=== PATIENT | male | born 1990 | race African-American/Black ===

== ENCOUNTER 2019-09-07 01:47 | Emergency (ER) | payer SELFPAY ==
[~2019-09-07] VITALS: Ht 172.7 cm; Wt 63.5 kg
--- NOTE | 2019-09-07 02:03 | Emergency Room Report ---
History of Present Illness General Chief Complaint: Seizure Source: Patient, EMS Present Illness HPI Patient is a 29-year-old male denies any significant past medical history who was brought in by EMS after possible seizure. Patient is amnestic to what happened. Per family that called EMS patient was sitting up and became stiff and shook for about 5 seconds and was unresponsive for about 1 minute. After that patient was awake but lethargic. He does not remember what happened. He denies any history of seizures. He denies any chest pain or shortness of breath. He denies any family history of early cardiovascular disease or sudden . Patient states that there have been no recent changes to his life. Specifically he denies any new supplement use, excessive caffeine use, recent travel, excessive stress or lack of sleep. Patient denies any abdominal pain, nausea or vomiting. Allergies: Coded Allergies: No Known Allergies (Unverified , 09/07/19) COVID-19 Screening Contact w/high risk pt: No Recent Travel to affected area: No Experienced COVID-19 symptoms?: No COVID-19 Testing performed [employer]: No Patient History Past Medical History: none Past Surgical History: none Social History: Reports: drug use - marijuana; Denies: smoking, alcohol use Nursing Documentation-[facility] Past Medical History: No Stated History Review of Systems All Other Systems: negative except mentioned in HPI Physical Exam Vital Signs Date Time Temp Pulse Resp B/P (MAP) Pulse Ox O2 Delivery O2 Flow Rate FiO2 09/07/19 01:50 98.6 82 18 128/86 (100) 99 Room Air Sp02 EP Interpretation: reviewed, normal General Appearance: no apparent distress, alert, GCS 15, non-toxic Head: normocephalic, atraumatic Eyes: bilateral eye normal inspection, bilateral eye PERRL ENT: hearing grossly normal, normal pharynx, no angioedema, normal voice Neck: full range of motion, supple/symm/no masses Respiratory: chest non-tender, lungs clear, normal breath sounds, speaking full sentences Cardiovascular #1: regular rate, rhythm, no edema Cardiovascular #2: 2+ carotid (R), 2+ carotid (L), 2+ radial (R), 2+ radial (L) , 2+ dorsalis pedis (R), 2+ dorsalis pedis (L) Gastrointestinal: normal bowel sounds, non tender, soft, non-distended, no guarding, no rebound Rectal: deferred Genitourinary: normal inspection, no CVA tenderness Musculoskeletal: back normal, normal range of motion, no calf tenderness, gait/ station normal, non-tender Neurologic: alert, motor strength/tone normal, oriented x3, sensory intact, responsive, speech normal Psychiatric: judgement/insight normal, memory normal, mood/affect normal, no suicidal/homicidal ideation Skin: no rash Lymphatic: no adenopathy Medical Decision Making ER Course Our CT scanner is not working. They are calling for repair. Patient has been advised. We have called [facility]. We will send the patient to [facility] for a CAT scan of his head and they will send the patient back to our emergency room. We are calling for transport at 3:30 AM. Prior to patient leaving CT scan started to work again. Patient CT brain demonstrated no acute intracranial pathology. Patient's ER work-up demonstrates positive UTI due to the patient's age I will empirically treat him for STDs and start him on Cipro. Patient positive for THC.. Patient given outpatient resources for follow-up. Due to the fact that this is his first seizure we will not start him on any medications at this time. Patient told that he cannot drive until cleared by a neurologist. After discussing risks and benefits of further diagnostics, treatment plans, as well as indications for and risks of admission, the patient is agreeable to being discharged home. I have explained that their evaluation and treatment in the emergency department today is an important step towards them achieving better health but that their evaluation today is not intended to replace further evaluation and treatment by a physician in their local clinic. I have explained that while the current findings suggest no immediate life threatening emergency they will require further evaluation and treatment by a physician of their choice in their area. They understand that it will be necessary for them to review the final reports of their ED visit with their clinic physician. We have reviewed indications for return to the Emergency Department. I have explained that additional time may need to pass and/or additional testing as an outpatient may be necessary before a definitive diagnosis can be made. They tell me they are willing to follow up as instructed within the timeframe I recommend. They appear to understand what we discussed. Additionally they understand that if they are unable to be seen by an outpatient physician they are welcome, and in fact should, return to the Emergency Department for a repeat evaluation. The patient is stable at time of discharge. EKG Diagnostic Results EKG Time: 02:02 EP Interpretation: MD Wilmer Rate: normal - 64 Rhythm: NSR ST Segments: no acute changes ASA given to the pt in ED: No Rhythm Strip Diag. Results Rhythm Strip Time: 02:10 EP Interpretation: yes - Gaby Guillen MD Rate: 66 Rhythm: NSR, no PVC's, no ectopy Last Vital Signs Date Time Temp Pulse Resp B/P (MAP) Pulse Ox O2 Delivery O2 Flow Rate FiO2 09/07/19 01:50 98.6 82 18 128/86 (100) 99 Room Air Disposition: HOME, SELF-CARE Condition: Stable Scripts Ciprofloxacin Hcl* (CIPROFLOXACIN HCL*) 500 Mg Tablet 500 MG ORAL Q12H, #20 TAB 0 Refills Prov: Gaby Guillen M.D. 09/07/19 Additional Instructions: The patient was provided with discharge instructions, notified to follow-up with a primary care doctor and or specialist in the next 24-48 hours, and to return to the ED if they have worsening of their symptoms. Please note that this report is being documented using [employer] technology. This can lead to erroneous entry secondary to incorrect interpretation by the dictating instrument. Gaby Guillen M.D. Sep 07, 2019 02:03
[2019-09-07 02:05] VITALS: BP 128/86
[2019-09-07 02:27] LABS: BASOPHILS % (AUTO) 2.8 % (0.0-2.0); EOSINOPHILS % (AUTO) 3.4 % (0.0-3.0); HEMATOCRIT 41.7 % (42.0-52.0); HEMOGLOBIN 15.7 G/DL (14.2-18.0); LYMPHOCYTES % (AUTO) 39.6 % (20.0-45.0); MEAN CORPUSCULAR VOLUME 89 FL (80-99); MONOCYTES % (AUTO) 10.1 % (1.0-10.0); NEUTROPHILS % (AUTO) 44.2 % (45.0-75.0); PLATELET COUNT 178 K/UL (150-450); RED CELL DISTRIBUTION WIDTH 10.4 % (11.6-14.8); WHITE BLOOD COUNT 8.4 K/UL (4.8-10.8)
[2019-09-07 02:30] LABS: ANION GAP 9 mmol/L (5-15); BLOOD UREA NITROGEN 25 mg/dL (7-18); CARBON DIOXIDE 28 MMOL/L (21-32); CHLORIDE 105 MMOL/L (98-107); CREATININE 1.3 MG/DL (0.55-1.30); POTASSIUM 3.5 MMOL/L (3.5-5.1); SODIUM 142 MMOL/L (136-145)
[2019-09-07 02:42] LABS: ALANINE AMINOTRANSFERASE 27 U/L (12-78); ALBUMIN 4.1 G/DL (3.4-5.0); ALBUMIN/GLOBULIN RATIO 1.3 (1.0-2.7); ALKALINE PHOSPHATASE 81 U/L (46-116); ASPARTATE AMINO TRANSFERASE 20 U/L (15-37); BILIRUBIN,TOTAL 0.5 MG/DL (0.2-1.0); CREATINE KINASE 134 U/L (26-308); PHOSPHORUS 3.5 MG/DL (2.5-4.9)
[2019-09-07 03:19] LABS: APPEARANCE,URINE CLEAR; BILIRUBIN, URINE NEGATIVE (NEGATIVE); GLUCOSE, URINE (UA) NEGATIVE (NEGATIVE); KETONES,URINE NEGATIVE (NEGATIVE); LEUKOCYTE ESTERASE ,URINE 2+ (NEGATIVE); NITRITE,URINE NEGATIVE (NEGATIVE); PH,URINE 5 (4.5-8.0); PROTEIN,URINE 1+ (NEGATIVE); UROBILINOGEN,URINE 4 MG/DL (0.0-1.0)
[2019-09-07 03:49] LABS: COLOR,URINE YELLOW
[2019-09-07] MEDS ORDERED: Azithromycin 250mg tab ORAL ONE (04:15)
[2019-09-07] MEDS ORDERED: cefTRIAXone 1 GM in NS 55 ML IVPB ONE (04:15)
[2019-09-07 04:30] VITALS: BP 122/85
[2019-09-07] MEDS ORDERED: CIPROFLOXACIN500 M2 ORAL (05:51)
--- NOTE | 2019-09-07 06:01 | Diagnostic Imaging Report ---
ADDENDUM - Added by Cornelio Poe M.D. on 09/07/2019 6:00 AM (-07:00) Technique: Coronal reformatted images were generated and reviewed. No sagittal reformatted images were provided. EXAM: CT Head Without Intravenous Contrast CLINICAL HISTORY: [facility] TECHNIQUE: Axial computed tomography images of the head/brain without intravenous contrast. CTDI is 53.4 mGy and DLP is 1152.4 mGy-cm. One or more of the following dose reduction techniques were used: automated exposure control, adjustment of the mA and/or kV according to patient size, use of iterative reconstruction technique. Coronal and sagittal reformatted images were created and reviewed. COMPARISON: No relevant prior studies available. FINDINGS: Brain: Unremarkable. No mass effect, hemorrhage, large extra-axial collection, or CT evidence of acute cortical infarction. Vertically oriented artifact extending down the midline of the study artifact contributes to focal hypodensity over the corpus callosal body (series 12, image 68). Ventricles: Unremarkable. No midline shift or ventriculomegaly. Bones/joints: No depressed calvarial fracture. Soft tissues: Unremarkable. Sinuses: No sinus fluid level. Mastoid air cells: No mastoid effusion. IMPRESSION: No CT evidence of acute intracranial process. If symptoms persist, MRI could be performed for more sensitive evaluation.
[2019-09-07 06:20] VITALS: BP 118/78
== END 2019-09-07 06:20 | disposition home or self-care (01) ==
LOC: EDBD 01:47 → EMR 02:12
DX: R56.9 Unspecified convulsions (principal); F12.90 Cannabis use, unspecified, uncomplicated; N39.0 Urinary tract infection, site not specified
CPT/HCPCS: 36415; 70450; 80053; 80307; 81003; 82550; 83735; 84100; 84439; 84443; 84484; 85025; 87086; 87491; 87590; 93005; 96361; 96365; 99284; J0696; J7030